=== PATIENT | male | born 1990 | race Two or more races ===

== ENCOUNTER 2019-12-19 00:46 | Emergency (ER) | payer SELFPAY ==
[~2019-12-19] VITALS: Ht 170.2 cm; Wt 79.4 kg
[2019-12-19 00:54] VITALS: BP 139/88
--- NOTE | 2019-12-19 01:22 | NUR ---
XRAY AT BEDSIDE
--- NOTE | 2019-12-19 01:59 | NUR ---
Patient discharged to home in stable condition. Written and verbal after care instructions given. Patient verbalizes understanding of instruction.
== END 2019-12-19 01:59 | disposition home or self-care (01) ==
LOC: ER 00:50
DX: M62.838 Other muscle spasm (principal); M54.12 Radiculopathy, cervical region
CPT/HCPCS: 71045-TC